=== PATIENT | female | born 1950 | race Hispanic/Latino ===

== ENCOUNTER 2019-01-15 17:31 | Emergency (ER) | payer MEDICARE, OTHER ==
[~2019-01-15] VITALS: Ht 160 cm; Wt 69.4 kg
[~2019-01-15 17:31] MED LIST: AMLODIPINE BESY10 MG PO; AMLODIPINE PO; ASPIR 8181 MG PO; CLONIDINE HCL0.3 MG PO; LEVOXYL25 MCG PO; LISINOPRIL40 MG PO; NAPROXEN PO; NAPROXEN500 MG PO; SIMVASTATIN10 MG PO; TYLENOL EXTRA500 MG PO; VITAMIN D350000 UNIT PO
--- OUTSIDE RECORDS SUMMARY | 2019-01-15 17:34 | XMS REPORT ---
Author Author [facility] Address Unknown Phone Unavailable Care Team Providers Care Lead Man [employer] Name Role Phone Unavailable Unavailable Problems This patient has no known problems. Allergies, Adverse Reactions, Alerts This patient has no known allergies or adverse reactions. Medications This patient has no known medications. Results Test Description Test Time Test Comments Text Results Atomic Results Result Comments SCR MAMM BILATERAL ALVIN CAD DIGITAL 2018-12-18 12:50:41 - SCR MAMM BILATERAL ALVIN CAD DIGITALBILATERAL DIGITAL SCREENING MAMMOGRAM 3D/2D WITH CAD: 12/18/2018CLINICAL: Asymptomatic. Digital breast tomosynthesis was performed in addition to routine CC and MLO views. Current mammographic images were evaluated by either a [employer] M-Vu or a [employer] ImageChecker CAD (computer aided detection system). Comparison is made to exams dated 12/12/2017 mammogram, 12/09 mammogram, and 11/21/2015 mammogram - [facility]. There are scattered fibroglandular tissues in both breasts. There is a benign calcification and benign oil cyst in the right breast. There also are benign vascular calcifications in the left breast. No suspicious mass, architectural distortion, malignant type calcification, or lymph node abnormality detected. Breast architecture is stable compared to prior exams.IMPRESSION: BENIGNThere is no mammographic evidence of malignancy. Resume annual screening mammography in one year. Michelle Singh D.O. al/:12/18/2018 12:50:41 Thermodynamic Physicist: Abbi BRAGG, [facility] sent: BIRADS 1-2 Normal Mammogram BI-RADS: 2 Benign
[2019-01-15] MEDS ORDERED: PANTOPRAZOLE 40 MG 10ML VIAL IV STA (17:40)
[2019-01-15] MEDS ORDERED: BELLADONNA ALK/PHENOBARBITAL 5 ML UDC PO STA (17:40)
[2019-01-15] MEDS ORDERED: MAGNESIUM/ALUMINUM/SIMETHICONE 30 ML UDC PO ONE (17:45)
[2019-01-15] MEDS ORDERED: LIDOCAINE VISC 2% SOLN 15 ML UDC PO ONE (17:45)
[2019-01-15 18:27] LABS: BASOPHILS % 0.3 % (0.0-1.0); EOSINOPHILS # (AUTO) 0.4 (0.0-0.4); EOSINOPHILS % 6.5 % (0.0-6.0); HEMATOCRIT 30.6 % (34.2-44.1); HEMOGLOBIN 10.1 g/dL (12.0-16.0); LYMPHOCYTES # (AUTO) 1.6 (1.0-3.2); LYMPHOCYTES % 24.2 % (18.0-39.1); MEAN CORPUSCULAR HEMOGLOBIN 30.1 pg (28-32); MEAN CORPUSCULAR VOLUME 91.1 fL (81-99); MONOCYTES # (AUTO) 0.5 (0.2-0.8); MONOCYTES % 7.8 % (4.4-11.3); NEUTROPHILS # (AUTO) 4.1 (2.1-6.9); PLATELET COUNT 229 x10e3/uL (140-360); RED BLOOD COUNT 3.36 x10e6/uL (3.6-5.1); RED CELL DISTRIBUTION WIDTH 13.7 % (11.7-14.4)
[2019-01-15 18:30] LABS: INR 0.96; PROTHROMBIN TIME 13.3 seconds (11.9-14.5)
[2019-01-15 18:39] LABS: ALANINE AMINOTRANSFERASE 12 IU/L (0-55); ALBUMIN 3.6 g/dL (3.5-5.0); ALKALINE PHOSPHATASE 71 IU/L (40-150); ANION GAP 13.9 mmol/L (8-16); BLOOD UREA NITROGEN 14 mg/dL (7-26); BUN/CREATININE RATIO 17 (6-25); CALCIUM 10.1 mg/dL (8.4-10.2); CARBON DIOXIDE 25 mmol/L (22-29); CHLORIDE 104 mmol/L (98-107); CREATINE KINASE 74 IU/L (29-168); CREATININE, SERUM 0.84 mg/dL (0.57-1.11); EST GLOMERULAR FILTRATION RATE > 60 ML/MIN (60-); GLUCOSE 93 mg/dL (74-118); SODIUM 140 mmol/L (136-145)
[2019-01-15 18:41] LABS: POTASSIUM 2.9 mmol/L (3.5-5.1)
[2019-01-15] MEDS ORDERED: POTASSIUM CHLORIDE 20MEQ/15ML UDC PO ONE (18:42)
--- NOTE | 2019-01-15 18:46 | Diagnostic Imaging Report ---
EXAMINATION: CHEST 2 VIEWS INDICATION: Chest pain. COMPARISON: None FINDINGS: PA and lateral views TUBES and LINES: None. LUNGS: Lungs are well inflated. Lungs are clear. There is no evidence of pneumonia or pulmonary edema. PLEURA: No pleural effusion or pneumothorax. HEART AND MEDIASTINUM: Cardiac size is mildly enlarged. There are atherosclerotic calcifications within the aorta. Aortic valve prosthesis calcification. BONES AND SOFT TISSUES: No acute osseous lesion. Soft tissues are unremarkable. UPPER ABDOMEN: No free air under the diaphragm. IMPRESSION: Mild cardiomegaly. Signed by: Dr. Jaren Stoner M.D. on 01/15/2019 6:43 PM
[2019-01-15] MEDS ORDERED: POTASSIUM CHLORIDE 10MEQ/100ML 400 ML IV ONE (18:47)
[2019-01-15] MEDS ORDERED: SODIUM CHLORIDE 0.9% 1000ML 1,000 ML IV SCH (19:30)
[2019-01-15] MEDS ORDERED: SODIUM CHLORIDE 0.9% IV ONE (20:00)
[2019-01-15] MEDS ORDERED: POTASSIUM CHL IV ONE (20:00)
[2019-01-15] MEDS ORDERED: POTASSIUM CHLORIDE 10MEQ/100ML 100 ML IV ONE (21:15)
[2019-01-15] MEDS ORDERED: POTASSIUM CHLORIDE 20 MEQ TAB CR PO STA (23:41)
[2019-01-15 23:50] VITALS: BP 145/64
== END 2019-01-16 00:10 | disposition home or self-care (01) ==
LOC: ER 17:31
DX: R07.89 Other chest pain (principal); K21.0 Gastro-esophageal reflux disease with esophagitis; E87.6 Hypokalemia; K52.9 Noninfective gastroenteritis and colitis, unspecified
CPT/HCPCS: 36415; 71046; 80053; 82550; 82553; 84484; 85025; 85610; 85730; 93005; 99283; C9113; J3480 ×2; J7030; J7040

== ENCOUNTER 2021-09-03 16:43 | Emergency (ER) | payer MEDICARE ==
[~2021-09-03] VITALS: Ht 160 cm; Wt 69.4 kg
[2021-09-03] MEDS ORDERED: ONDANSETRON HCL INJ 2MG/ML 2ML 2 MG/ML VIAL IV STA (17:15)
[2021-09-03] MEDS ORDERED: SODIUM CHLORIDE 0.9% 1000ML 1,000 ML IV STA (17:15)
[2021-09-03 17:40] LABS: BASOPHILS % 0.4 % (0.0-1.0); EOSINOPHILS # (AUTO) 0.2 (0.0-0.4); EOSINOPHILS % 2.5 % (0.0-6.0); HEMATOCRIT 35.9 % (34.2-44.1); HEMOGLOBIN 11.3 g/dL (12.0-16.0); LYMPHOCYTES # (AUTO) 1.9 (1.0-3.2); LYMPHOCYTES % 22.5 % (18.0-39.1); MEAN CORPUSCULAR HGB CONC 31.5 g/dL (31-35); MEAN CORPUSCULAR VOLUME 92.1 fL (81-99); MONOCYTES # (AUTO) 0.6 (0.2-0.8); MONOCYTES % 6.9 % (4.4-11.3); NEUTROPHILS # (AUTO) 5.7 (2.1-6.9); NEUTROPHILS % 67.2 % (38.7-80.0); PLATELET COUNT 232 x10e3/uL (140-360); RED CELL DISTRIBUTION WIDTH 12.7 % (11.7-14.4)
[2021-09-03 17:45] LABS: INR 1.09; PARTIAL THROMBOPLASTIN TIME 34.3 seconds (23.8-35.5)
[2021-09-03 17:54] LABS: ALBUMIN 3.7 g/dL (3.5-5.0); ALBUMIN/GLOBULIN RATIO 1.2 (0.8-2.0); ALKALINE PHOSPHATASE 60 IU/L (40-150); ANION GAP 12.2 mmol/L (8-16); BLOOD UREA NITROGEN 13 mg/dL (7-26); BUN/CREATININE RATIO 15 (6-25); CALCIUM 9.3 mg/dL (8.4-10.2); CARBON DIOXIDE 22 mmol/L (22-29); CHLORIDE 110 mmol/L (98-107); CREATINE KINASE 43 IU/L (29-168); CREATININE, SERUM 0.88 mg/dL (0.57-1.11); EST GLOMERULAR FILTRATION RATE 63 ML/MIN (60-); GLUCOSE 125 mg/dL (74-118); POTASSIUM 3.2 mmol/L (3.5-5.1); SODIUM 141 mmol/L (136-145)
[2021-09-03 17:57] LABS: ALANINE AMINOTRANSFERASE < 6 IU/L (0-55)
[2021-09-03 18:10] LABS: CLARITY,URINE SL CLOUDY (CLEAR); COLOR,URINE STRAW (YELLOW); KETONES,URINE NEGATIVE (NEGATIVE); LEUKOCYTE ESTERASE ,URINE TRACE (NEGATIVE); NITRITE,URINE NEGATIVE (NEGATIVE); PROTEIN,URINE DIPSTICK NEGATIVE (NEGATIVE); URINE UROBILINOGEN 0.2 mg/dL (0.2 - 1)
[2021-09-03 18:25] LABS: BACTERIA,URINE FEW /HPF; EPITHELIAL CELLS,URINE FEW /LPF; WBC,URINE (MAN) 0-5 /HPF (0-5)
[2021-09-03] MEDS ORDERED: SODIUM CHLORIDE 0.9% 50ML 50 ML ONE ×2 (18:28→21:08)
[2021-09-03] MEDS ORDERED: IOPAMIDOL 370 MG/ML 200 ML INFUS..BTL INJ ONE (18:28)
[2021-09-03] MEDS ORDERED: POTASSIUM CHLORIDE 10MEQ EA PO ONE (18:30)
[2021-09-03] MEDS ORDERED: GADOBENATE DIMEGLUMINE 1 ML IV ONE (21:08)
[2021-09-03 22:54] VITALS: BP 134/64
== END 2021-09-03 22:50 | disposition home or self-care (01) ==
LOC: ER 17:52
DX: R10.12 Left upper quadrant pain (principal); R11.2 Nausea with vomiting, unspecified; I95.89 Other hypotension; R94.31 Abnormal electrocardiogram [ECG] [EKG]; I10 Essential (primary) hypertension; E78.5 Hyperlipidemia, unspecified; M06.9 Rheumatoid arthritis, unspecified; Z85.42 Personal history of malignant neoplasm of other parts of uterus
CPT/HCPCS: 36415; 71045; 74177; 74183; 80053; 81001; 82550; 82553; 83735; 83880; 84484; 85025; 85610; 85730; 93005; 99284; J7030; Q9967